=== PATIENT | female | born 1960 | race Caucasian/White ===

== ENCOUNTER 2016-05-27 06:46 | Day surgery (SDC) | payer OTHER, SELFPAY ==
[2016-05-27] MEDS ORDERED: Lactated Ringers 1,000 ML IV SCH (07:00)
[2016-05-27] MEDS ORDERED: Sodium Chloride 0.9% 10 ML Syringe FLUSH PRN (07:00)
[2016-05-27] MEDS ORDERED: Midazolam 1 MG/ML 2 ML SDV IV ONE (08:00)
[2016-05-27] MEDS ORDERED: Propofol 200 MG/20 ML SDV IV ONE (08:00)
[2016-05-27] MEDS ORDERED: Lidocaine 2% 100 MG/5 ML Syringe IVPUSH ONE (08:00)
--- NOTE | 2016-05-27 08:25 | PCM.OPNOTE ---
- General Post-Op/Procedure Note Date of Surgery/Procedure: 05/27/16 Operative Procedure(s): c scope with bx Findings: colitis internal hemorrhoids Pre Op Diagnosis: heme + stools Post-Op Diagnosis: colitis. internal hemorrhoids Anesthesia Technique: MAC Primary Surgeon: Handy Sales Anesthesia Provider: Carissa Garcia Pathology: ascending colon and sigmoid Complications: None Condition: Good Free Text/Narrative:: see dictation
[2016-05-27 09:42] VITALS: BP 122/86
--- NOTE | 2016-05-27 14:38 | OR ---
DATE OF OPERATION: 05/27/2016 SURGEON: Handy Sales MD PROCEDURE PERFORMED: Colonoscopy with cold forceps biopsy. PREOPERATIVE DIAGNOSIS: Occult blood in stool and lower abdominal pain. POSTOPERATIVE DIAGNOSIS: Questionable area of colitis, ascending, and sigmoid colon as well as internal hemorrhoids. INDICATIONS FOR PROCEDURE: This is a 55-year-old white female who was referred with a complaint of some occult blood in her stool. She was offered and accepted a colonoscopy. In addition, she has also had some issues with some crampy lower abdominal pain. DESCRIPTION OF OPERATION: After an excellent IV sedation was administered, digital rectal exam was performed. No marked abnormality was noted. The flexible colonoscope was inserted and advanced to the cecum. The prep was excellent. The following findings were noted. Attempts to intubate the terminal ileum were not successful. Ascending colon, near the TI patchy area of inflammation biopsied with cold biopsy forceps. Transverse colon was unremarkable. Descending colon was unremarkable. Stomach patch of what appeared to be colitis. This was biopsied as well, and on retroflex of the scope in the anus, there was evidence of internal hemorrhoids, which appeared to be the probable cause of her bleeding. The colon was deflated, scope was removed. The patient tolerated the procedure well and was taken to recovery room in good condition. /[id number] /[id number]
== END 2016-05-27 09:23 | disposition home or self-care (01) ==
LOC: FB.SDS 06:46
PROVIDERS: ATTEND Surgery
DX: K64.8 Other hemorrhoids (principal); K31.89 Other diseases of stomach and duodenum; I10 Essential (primary) hypertension; E78.5 Hyperlipidemia, unspecified; K21.9 Gastro-esophageal reflux disease without esophagitis; Z79.899 Other long term (current) drug therapy; Z72.0 Tobacco use; F17.210 Nicotine dependence, cigarettes, uncomplicated
CPT/HCPCS: 45380; 88305; J2250; J2704; J7120